=== PATIENT | female | born 1980 | race Caucasian/White ===

== ENCOUNTER → 2020-11-18 | Outpatient (CLI) | payer OTHER ==
[2020-11-18 13:25] LABS: HEMOGLOBIN 14.6 gm/dl (12.3-15.3); RED BLOOD COUNT 4.54 M/UL (4.00-5.10); WHITE BLOOD COUNT 8.2 K/UL (4.5-11.0)
[2020-11-18 13:44] LABS: BUN/CREATININE RATIO 5 (0-10)
[2020-11-21 07:40] LABS: QUANTIFERON TB1 AG VALUE 0.04 IU/mL; QUANTIFERON TB2 AG VALUE 0.03 IU/mL
[2020-11-21 07:41] LABS: QUANTIFERON MITOGEN VALUE > 10.00 IU/mL; QUANTIFERON NIL VALUE 0.03 IU/mL
[2020-11-21 07:42] LABS: QUANTIFERON-TB GOLD PLUS Negative
== END ==
LOC: LAB 12:11
PROVIDERS: Nurse Practitioner; Physician Assistant
DX: K50.10 Crohn's disease of large intestine without complications (principal)
CPT/HCPCS: 36415; 80053; 82043; 85025; 85027; 86140

== ENCOUNTER → 2021-08-07 | Outpatient (CLI) | payer OTHER ==
[2021-08-07 12:50] LABS: HEMOGLOBIN 14.2 gm/dl (12.3-15.3); RED BLOOD COUNT 4.31 M/UL (4.00-5.10); WHITE BLOOD COUNT 9.6 K/UL (4.5-11.0)
[2021-08-07 13:17] LABS: BUN/CREATININE RATIO 9 (0-10)
== END ==
LOC: LAB 10:34
PROVIDERS: Physician Assistant
DX: K50.113 Crohn's disease of large intestine with fistula (principal); Z79.899 Other long term (current) drug therapy
CPT/HCPCS: 36415; 80053; 85025; 86140